=== PATIENT | male | born 1945 | race Caucasian/White ===

== ENCOUNTER 2016-07-09 16:38 | Outpatient (CLI) | payer OTHER ==
--- NOTE | 2016-07-09 17:22 | DIAGNOSTIC IMAGING REPORT ---
PROCEDURE: XR SHOULDER 2 OR MORE VW-LEFT INDICATION: HIP PAIN LEFT/ SHOULDER PAIN LEFT TECHNIQUE: Three views. COMPARISON: None. FINDINGS: There is narrowing of the subacromial space and marked irregularity of the humeral head. This suggests a rotator cuff tear. There is also evidence of calcific tendonitis. 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 IMPRESSION: 1. Calcific tendonitis and narrowing of the subacromial space suggesting rotator cuff injury.
== END 2016-07-09 23:00 ==
LOC: XR SRH 16:38
DX: M75.32 Calcific tendinitis of left shoulder (principal)